=== PATIENT | female | born 1995 | race Hispanic/Latino ===

== ENCOUNTER 2019-08-17 09:57 | Inpatient (IN) | payer OTHER, SELFPAY ==
[2019-08-17] VITALS (62 sets, daily range): BP systolic 93–130; BP diastolic 47–90; PULSE 50–97; RESP 10–18; TEMP 36.1–37; O2SAT 92–100; BMI 33.4
--- NOTE | 2019-08-17 06:16 | HP_ITS ---
DATE OF SERVICE: CHIEF COMPLAINT: Elective repeat section. HISTORY OF PRESENT ILLNESS: A 23-year-old G4, P1-0-2-1 at 39 weeks and 4 days gestation, presenting for scheduled elective repeat section secondary to prior section. The patient reports some pelvic pain and pressure, but otherwise doing well. Feels good movement. Denies headaches, blurry vision, spots in her vision, chest pain, shortness of breath, abdominal pain, nausea, vomiting, diarrhea, constipation, or dysuria. PAST MEDICAL HISTORY: Anxiety, depression, headaches. PAST SURGICAL HISTORY: Dilation and curettage and 1 section. SOCIAL HISTORY: History of tobacco use. Denies alcohol or drug use. FAMILY HISTORY: Mother with diabetes and hypertension. OBSTETRICAL HISTORY: G4, P1-0-20-1 with 1 previous section. Also complicated with preeclampsia. CURRENT MEDICATIONS: vitamins and low-dose aspirin. ALLERGIES: FENTANYL, REACTION IS VOMITING. REVIEW OF SYSTEMS: 10-point review of systems completed. Pertinent positives and negatives as per the HPI. PHYSICAL EXAMINATION: GENERAL: No acute distress. Alert and oriented x3. PSYCHIATRIC: Appropriate mood and affect. RESPIRATORY: Nonlabored breathing. Clear to auscultation bilaterally. CARDIOVASCULAR: Regular rate and rhythm. ABDOMEN: Gravid, soft, nontender. REVIEW OF LABORATORY STUDIES: H and H from July 06, hemoglobin of 10.7 and hematocrit 33.2. ASSESSMENT: 1. 39-week term gestation. 2. History of previous section. DISCUSSION: Discussed with the patient risks, benefits, and alternatives to management. The patient desires elective repeat section. PLAN: Repeat section. D I MT: Bart
[2019-08-17] MEDS: LACTATED RINGERS 1,000 ML 125 ML IV CONT ×2 (10:55→19:26)
--- NOTE | 2019-08-17 10:55 | LDADM ---
This patient, Saul Cisneros, was admitted to Labor/Delivery/Recovery 119 on 08/17/19 at 09:57 for repeat section and bilateral tubal ligation. Plans for surgery/ and pain management were discussed with patient. Patient/family oriented to hospital policies and general routines including ID bracelet, bed and alarms, visiting hours, pain management, procedures, bathroom and other care routines, personal items, smoking policy, room service/diet and guest tray routines, security routines, and visiting hours. Patient/Family are encouraged to report perceived risks to care and to ask questions if they do not understand what they are told or what they should do. See OBIX for further documentation.
[2019-08-17 11:06] LABS: Basophils Percent Auto 0.3 % (0.2-1.2); Eosinophils Absolute Auto 0.1 K/mm3 (0-0.3); Eosinophils Percent Auto 0.6 % (0-4.4); Hematocrit 33.4 % (37.0-47.0); Hemoglobin 10.9 g/dL (12.0-15.0); Immature Granulocyte Absolute 0.06 K/mm3 (0.00-0.031); Immature Granulocyte Percent A 0.6 % (0-0.5); Lymphocytes Absolute Auto 2.35 K/mm3 (0.9-3.2); Lymphocytes Percent Auto 24.8 % (18.3-44.2); Mean Corpuscular HGB Conc 32.6 g/dl (32-36); Mean Corpuscular Hemoglobin 28.8 pg (26-34); Mean Corpuscular Volume 88.1 fl (80-100); Mean Platelet Volume 11.7 fl (7.4-10.4); Monocytes Absolute Auto 0.6 K/mm3 (0.1-0.6); Monocytes Percent Auto 6.2 % (2.6-8.5); Neutrophils Absolute Auto 6.4 K/mm3 (1.3-6.7); Neutrophils Percent Auto 67.5 % (45.5-73.1); Platelet Count Result 243 k/mm3 (150-375); Red Blood Count 3.79 M/mm3 (4.2-5.4); Red Cell Distribution Width 13.3 % (11.5-14.5); White Blood Count 9.5 K/mm3 (4.5-10.0)
--- NOTE | 2019-08-17 11:38 | P.PNAN_ITS ---
Anes - Initial Pre Proc Eval Procedure: Operation Date: 08/17/19 12:00 Proposed Procedures p Repeat Section with Bilateral Tubal Ligation - Kendrick Croft DO Date/Time: 08/17/19 11:38 Surgeon: Kendrick Croft DO Pre Op Diagnosis: repeat section, sterilization Patient Data Age: 23 Gender: F Height: 4 ft 10 in Weight: 72.5 kg Last Vital Signs Pulse 88 08/17/19 11:16 BP 96/56 L 08/17/19 11:16 Allergies Allergy/AdvReac Type Severity Reaction Status Date / Time No Known Allergies Allergy Verified 08/17/19 10:58 Home Medications Medication Instructions Recorded Confirmed Type No Home Medications 08/17/19 08/17/19 History Laboratory Tests 08/17/19 08/17/19 10:53 10:53 WBC 9.5 K/mm3 K/mm3 (4.5-10.0) RBC 3.79 M/mm3 L M/mm3 (4.2-5.4) Hgb 10.9 g/dL L g/dL (12.0-15.0) Hct 33.4 % L % (37.0-47.0) MCV 88.1 fl fl (80-100) MCH 28.8 pg pg (26-34) MCHC 32.6 g/dl g/dl (32-36) RDW 13.3 % % (11.5-14.5) Plt Count 243 k/mm3 k/mm3 (150-375) MPV 11.7 fl H fl (7.4-10.4) Immature Gran % (Auto) 0.6 % H % (0-0.5) Neut % (Auto) 67.5 % % (45.5-73.1) Lymph % (Auto) 24.8 % % (18.3-44.2) [place] % (Auto) 6.2 % % (2.6-8.5) Eos % (Auto) 0.6 % % (0-4.4) Baso % (Auto) 0.3 % % (0.2-1.2) Lymph # (Auto) 2.35 K/mm3 K/mm3 (0.9-3.2) [place] # (Auto) 0.6 K/mm3 K/mm3 (0.1-0.6) Eos # (Auto) 0.1 K/mm3 K/mm3 (0-0.3) Baso # (Auto) 0.0 K/mm3 K/mm3 (0.0-0.1) Abs Immat Gran (auto) 0.06 K/mm3 H K/mm3 (0.00-0.031) Absolute Neuts (auto) 6.4 K/mm3 K/mm3 (1.3-6.7) Absolute Nucleated RBC 0.0 K/mm3 K/mm3 (0.0-0.012) Nucleated RBC % 0.0 % % (0.0-0.2) RPR Pending Patient hx anesthesia problems: none Family hx anesthesia problems: none PMFSH Family History Family History Mother , From Staph infection Staph infection Social History Social History Smoking status: Former smoker Tobacco type: cigarettes Substance use: never Spiritual care concerns: No Anes - Eval Final PreProcedure Day of Procedure 08/17/19 11:38 Patient weight: obese Heart: regular rate and rhythm Lungs: clear to auscultation Airway: Mallampati scale class II Neurological: alert and oriented Last oral intake: >/= 8 hours ASA classification: II Emergent: no Anesthetic plan: proceed Anesthesia type and monitoring: regional spinal and standard monitoring Informed Consent: The patient's anesthetic plan and its attendant risks and benefits were discussed with the patient/family/POA. Questions were solicited and answers provided to the satisfaction of the patient/family/POA.
[2019-08-17] MEDS: LACTATED RINGERS 1,000 ML 999 ML IV CONT (11:42)
--- NOTE | 2019-08-17 12:08 | WPDHPUPDATE1 ---
History and Physical Update Update Date/Time: 08/17/19 12:08 History and Physical has been reviewed, including an updated exam of the patient. There are NO changes in the patient's condition. Risks, benefits, and alternatives have been discussed and questions answered. Patient agrees to proceed with procedure. She desires to have a tubal ligation. Discussed higher rate of regret for women who have tubal ligations before age of 30. Discussed alternate forms of control. She would like to proceed with permanent sterilization.
[2019-08-17] MEDS: ceFAZolin 2 GM/D5W 50 ML 2 GM/50 ML BAG IVPB (12:11)
--- NOTE | 2019-08-17 13:27 | PM.OP ---
Procedure Note - Brief Procedure Note - Brief Date of procedure: 08/17/19 Pre-op diagnosis: repeat section, sterilization Procedure performed: Repeat low transverse section, bilateral tubal ligation Anesthesia: spinal Surgeon: Kendrick Croft DO Estimated blood loss (mL): 380 Complications: No immediate complications Condition: stable
--- NOTE | 2019-08-17 15:55 | PC.NURSE ---
Patient transferred to post room #stretcher via [id number]. Oriented to unit, room, information board, rooming in, admission packet and security measures. Patient verbalizes understanding.
[2019-08-17] MEDS: IBUPROFEN 600 MG TABLET PO (19:23)
--- NOTE | 2019-08-18 00:17 | OP_ITS ---
DATE OF PROCEDURE: 08/17/2019 PROCEDURE: Repeat low transverse section and bilateral tubal ligation. PREOPERATIVE DIAGNOSES: 1. History of previous section. 2. Desires permanent sterilization. POSTOPERATIVE DIAGNOSES: 1. History of previous section. 2. Desires permanent sterilization. ANESTHESIA: Spinal. ESTIMATED BLOOD LOSS: 380 mL. FINDINGS: 1. Single live male , born on August 17, 2018 at 12:43, weight 7 pounds 11 ounces, Apgars of 8 and 9. 2. Right paratubal cyst. SPECIMEN: Portions of bilateral fallopian tubes. COMPLICATIONS: None apparent. BRIEF HISTORY: A 23-year-old, G2, P1, with a history of 1 previous section, presenting for elective repeat section. She also states she has completed childbearing and would like a tubal ligation, permanent sterilization. I discussed with the patient that for people who get permanent sterilization before the age of 30, have a higher rate of regret later on in the life, and alternatives were offered, such as IUD or Nexplanon or other forms of control. However, she states that she is sure that she wants a tubal ligation. The risks, benefits, and alternatives were discussed. DESCRIPTION OF PROCEDURE: The patient was transferred to the OR. The anesthesia team placed a spinal. The patient was placed on the OR table. After adequate anesthesia was established, the patient's abdomen was prepped using chlorhexidine, and the patient was draped in the usual sterile fashion. A time-out was performed to identify the correct patient and the correct procedure. Preoperative antibiotics were administered. A Pfannenstiel skin incision was made. Subsequent dissection of the subcutaneous tissue was performed with a scalpel down to the level of the fascia. The fascia was nicked at the midline. The fascial incision was extended bilaterally using the Jeffers scissors. We did note some adhesions and scar tissues at this point. The superior aspect of the fascia was grasped using the Smitha clamps, tented up, and the rectus muscles were carefully dissected off the fascia. Attention was then turned to the inferior aspect of the fascia. These were grasped using the Smitha clamps, tented up, and the rectus muscles were carefully dissected off the fascia. The rectus muscles were divided at the midline, and the peritoneum was entered. Filmy adhesions were noted at this point. An Flakito self-retaining retractor was inserted into the abdomen. A low transverse incision was made on the lower uterine segment, clear fluid was noted. The uterine incision was extended bilaterally bluntly with cephalad and caudad force. My hand was reached into the uterine cavity. The 's head was elevated to the level of the hysterotomy with gentle fundal pressure. The was delivered. Cord was clamped and cut. The was passed off to the waiting nurse. Cord blood was collected. The placenta was expressed. IV Pitocin was started. The uterine cavity was cleared of any remaining clots and products of conception. Hysterotomy was checked for any extensions, no extensions were noted. The hysterotomy was reapproximated using 0 Vicryl in a locking continuous fashion. A small area was noted to be bleeding. This was rectified using an 0 Vicryl in a [id number] stitch. At this point, good hemostasis was noted. Next, we proceeded for the tubal ligation. The bilateral fallopian tubes were noted. On the right side, there was a paratubal cyst. The right fallopian tube was tented up using a Primitivo. A Bovie was used to create a small hole in the mesosalpinx. An 0 chromic was used to perform the tubal ligation in the Hoffman fashion. A portion of the fallopian tube was sent off for pathology. Good hemostasis
[2019-08-18 04:30] VITALS: BP 123/72; PULSE 85; RESP 16; TEMP 36.4; O2SAT 99
[2019-08-18] MEDS: IBUPROFEN 600 MG TABLET PO ×3 (05:02→19:18)
[2019-08-18 05:21] LABS: Basophils Percent Auto 0.3 % (0.2-1.2); Eosinophils Absolute Auto 0.1 K/mm3 (0-0.3); Eosinophils Percent Auto 0.5 % (0-4.4); Hematocrit 30.3 % (37.0-47.0); Hemoglobin 9.7 g/dL (12.0-15.0); Immature Granulocyte Absolute 0.04 K/mm3 (0.00-0.031); Immature Granulocyte Percent A 0.4 % (0-0.5); Lymphocytes Absolute Auto 2.22 K/mm3 (0.9-3.2); Lymphocytes Percent Auto 20.1 % (18.3-44.2); Mean Corpuscular Volume 90.4 fl (80-100); Mean Platelet Volume 12.1 fl (7.4-10.4); Monocytes Absolute Auto 0.8 K/mm3 (0.1-0.6); Monocytes Percent Auto 7.1 % (2.6-8.5); Neutrophils Absolute Auto 7.9 K/mm3 (1.3-6.7); Neutrophils Percent Auto 71.6 % (45.5-73.1); Platelet Count Result 211 k/mm3 (150-375); Red Blood Count 3.35 M/mm3 (4.2-5.4); Red Cell Distribution Width 13.4 % (11.5-14.5)
[2019-08-18 08:15] VITALS: BP 138/69; PULSE 86; RESP 16; TEMP 36.3; O2SAT 96
[2019-08-18] MEDS: DOCUSATE SODIUM 100 MG CAPSULE PO ×2 (08:25→16:47)
[2019-08-18] MEDS: POLYSACCHARIDE IRON COMPLEX 150 MG CAPSULE PO ×2 (08:26→16:47)
--- NOTE | 2019-08-18 09:11 | WPDANLDPN2 ---
Anes-Prog Note L&D Date/Time: 08/18/19 09:11 Comfortable throughout: section Neuraxial method: spinal Epidural/Spinal procedure site: clean & non-tender Neuro status: Neuro function grossly intact. Cardiovascular status: normal Respiratory status: normal Airway patency: baseline Mental status: baseline Post-Op hydration status: normal Vital Signs: Last Vital Signs Temp 36.4 C 08/18/19 04:30 Pulse 85 08/18/19 04:30 Resp 16 08/18/19 04:30 BP 123/72 08/18/19 04:30 Pulse Ox 99 08/18/19 04:30 Pain score (VAS): 0/10. Patient resting in bed at time of assessment, appears comfortable. I/O: Intake & Output 08/17/19 08/18/19 08/18/19 23:59 07:59 15:59 Output Total 425 1750 Balance -425 -1750 Post-procedural complaints: none Patient feedback: Patient satisfied with anesthetic care.
--- NOTE | 2019-08-18 09:12 | WPDANLDNPN2 ---
Anes-Prog Note L&D-Neuraxial Date/Time: 08/18/19 09:12 Neuraxial medications: intrathecal PF morphine Opiod-related complaints: none Patient feedback: Patient satisfied with post-operative pain management.
[2019-08-18 09:29] LABS: Rapid Plasma Reagin Non-Reactive (NonReactive)
--- NOTE | 2019-08-18 11:43 | P.PNOB_ITS ---
OB - PN: Subj Subjective Date/time seen: 08/18/19 11:43 Interval history: 23yo s/p rLTCS & BTL on 08/16. Doing well. Pain well controlled. Lochia minimal. Ambulating without issues. Tolerating diet. Passing flatus. No issues urinating. Denies fevers, chills, nausea, vomiting. Patient comments: pain well controlled and incisional pain baby status: doing well OB - PN: Obj Data Labs CBC & Chem 7: 08/18/19 05:07 Labs: Laboratory Results - last 24 hr 08/17/19 08/17/19 08/18/19 10:53 10:53 05:07 WBC 11.0 H RBC 3.35 L Hgb 9.7 L Hct 30.3 L MCV 90.4 MCH 29.0 MCHC 32.0 RDW 13.4 Plt Count 211 MPV 12.1 H Immature Gran % (Auto) 0.4 Neut % (Auto) 71.6 Lymph % (Auto) 20.1 [place] % (Auto) 7.1 Eos % (Auto) 0.5 Baso % (Auto) 0.3 Lymph # (Auto) 2.22 [place] # (Auto) 0.8 H Eos # (Auto) 0.1 Baso # (Auto) 0.0 Abs Immat Gran (auto) 0.04 H Absolute Neuts (auto) 7.9 H Absolute Nucleated RBC 0.0 Nucleated RBC % 0.0 RPR Non-reactive Blood Type O Positive Antibody Screen Negative OB - PN A/P Assessment and Plan (1) S/P repeat low transverse : Code(s): Z98.891 - History of uterine scar from previous surgery Status: Acute Assessment and Plan: Routine postop / care Pain management Ambulate (2) History of bilateral tubal ligation: Code(s): Z98.51 - Tubal ligation status Status: Acute Time Spent With Patient Time: Total time spent is greater than 50% in coordination of care (as documented) at patient's floor/unit and/or counseling patient: Review of Systems Review of Systems: All systems reviewed & are unremarkable except as noted in HPI and below Exam Const: General: comfortable, no acute distress, alert and awake Resp: Effort & Inspection: normal respiratory effort Cardio: Rate: regular rate GI: Other: soft, nontender, fundus firm
[2019-08-18 13:20] VITALS: BP 116/75; PULSE 94; RESP 18; TEMP 36.5; O2SAT 98
[2019-08-18 19:10] VITALS: BP 136/90; PULSE 85; RESP 14; TEMP 36.4; O2SAT 97
[2019-08-19] MEDS: IBUPROFEN 600 MG TABLET PO ×2 (05:51→14:22)
[2019-08-19 07:50] VITALS: BP 133/78; PULSE 80; RESP 16; TEMP 36.3; O2SAT 99
[2019-08-19] MEDS: POLYSACCHARIDE IRON COMPLEX 150 MG CAPSULE PO (08:21)
[2019-08-19] MEDS: DOCUSATE SODIUM 100 MG CAPSULE PO (08:21)
[2019-08-19] MEDS: TETANUS,DIPHTHERIA,AC PERTUSSIS ADULT 0.5 ML (ADACEL) IM (08:22)
--- NOTE | 2019-08-19 10:27 | PM.OBPNVD ---
OB - PN: Subj Subjective Date/time seen: 08/19/19 10:27 Interval history: 23yo s/p rLTCS & BTL on 08/16. POD#2. Doing well. Pain well controlled with medications. Lochia minimal. Ambulating without issues. Tolerating diet, without nausea or vomiting. Passing flatus. No issues urinating. Denies fevers, chills, chest pain, shortness of breath, dizziness, or headache. Bottle feeding. Desires to be discharged home today. baby status: doing well, s/p circumcision OB - PN: Obj Data Labs CBC & Chem 7: 08/18/19 05:07 OB - PN A/P Plan day: 2 Plan: routine care and discharge home Comments: - Meeting all post-op milestones - Pt desires to be discharged home today. Ok to be discharged home - Labs and vitals stable - ER return precautions: pain/n/v, fever, bleeding, HTN - Pelvic rest - F/u in 2 weeks for post-op check Time Spent With Patient Time: Total time spent is greater than 50% in coordination of care (as documented) at patient's floor/unit and/or counseling patient: Review of Systems Review of Systems: All systems reviewed & are unremarkable except as noted in HPI and below (HPI) Exam Const: General: comfortable, no acute distress, alert and awake Orientation/consciousness: patient oriented x3 Other: ambulating in room Resp: Effort & Inspection: normal respiratory effort Auscultation: clear to auscultation bilaterally Cardio: Rate: regular rate GI: Auscultation: normal bowel sounds Other: non-distended, soft, appropriately tender to palpation, fundus firm below umbilicus, pfannenstiel incision c/d/i covered with steri strips. Psych: Appearance: grossly normal Affect: normal affect Attitude: cooperative
--- NOTE | 2019-08-19 14:41 | PC.NURSE ---
Patient viewed the discharge video Mother & Baby Care, The First Two Weeks . Patient was given the opportunity and encouraged to ask questions. Patient verbalized understanding of information shared and has been given the mother/baby guide for home reference.
[2019-08-20 09:12] VITALS: BP 125/74; PULSE 87; RESP 18; TEMP 36.6
--- NOTE | 2019-08-22 07:50 | PM.DS ---
DS: Diagnosis Admitting Diagnosis Admitting Diagnosis: History of uterine scar from previous surgery Discharge Diagnosis (1) S/P repeat low transverse : Code(s): Z98.891 - History of uterine scar from previous surgery Status: Acute (2) History of bilateral tubal ligation: Code(s): Z98.51 - Tubal ligation status Status: Acute DS: Summary Hospital Course Reason for hospitalization: Elective repeat section, desires permanent sterilization Hospital Course: Admitted for elective repeat section and bilateral tubal ligation. Uncomplicated course, patient progressed as expected. Stable and ready for discharge on POD#2 Status at Discharge Functional status at discharge: independent ambulation Overall status at discharge: patient is progressing back to baseline Time Spent with Patient Time attestation: Total time spent providing and/or coordinating discharge services: Exam Const: General: comfortable, no acute distress, alert and awake Orientation/consciousness: patient oriented x3 Other: ambulating in room Resp: Effort & Inspection: normal respiratory effort Auscultation: clear to auscultation bilaterally Cardio: Rate: regular rate GI: Auscultation: normal bowel sounds Other: non-distended, soft, appropriately tender to palpation, fundus firm below umbilicus, pfannenstiel incision c/d/i covered with steri strips. Neuro: General: patient oriented x3 Psych: Appearance: grossly normal Affect: normal affect Attitude: cooperative DS: Data Data Completed and Pending Completed studies during hospitalization: Pending at discharge 08/17/19 12:56 Surgical [PTH] Routine Surgical [PTH] Routine Discharge Plan Discharge Attending physician on discharge: Tatyana Garcia Discharging Clinician: Tatyana Garcia Anticipated Discharge Date/Time: 08/19/19 16:00 Patient Disposition: Home, Self-Care Activity: no straining, pelvic rest and other - see discharge instructions Diet: regular Discharge Instructions: Education: Mom and Baby Guide Given to: Mother Follow-Up: Call your delivering provider's office for an appointment to be seen in: 2 Weeks Mom and baby should come to the [facility] for the follow-up appointment. Appointment Date/Time: Tuesday, August 20, 2019 at 9:00 am What to expect at your follow-up visit: Blood Pressure Check Physical Assessment Call [phone] if you are unable to keep your appointment time. BREAST CARE: 1. Wear a snug supportive bra. Bottle Feeding: A. May apply ice packs ABDOMINAL INCISION: (if applicable) 1. Allow incision to air dry 2. Do NOT use lotions for powders on your incision 3. When showering, allow soap and water to run over the incision, but do not wash incision EPISIOTOMY/PERINEAL CARE: 1. Until bleeding stops, use your severiano bottle after urinating 2. Change your pad frequently throughout the day 3. You may take sitz baths several times a day (fill your bathtub with warm water and soak for 20 minutes.) Do NOT bathe in the water 4. No tub baths until seen by your physician - You may shower ACTIVITY: 1. Rest as much as possible. 2. Do not exercise or lift anything heavier than your baby (such as laundry or other children.) 3. Avoid stairs or driving as much as possible. 4. Do not put anything into the vagina. No douching, tampons, or sexual activity until seen by physician. NOTIFY PHYSICIAN IF YOU HAVE ANY QUESTIONS OR IF ANY OF THE FOLLOWING SYMPTOMS OCCUR: 1. If your incision becomes red, swollen, or more painful than what you have experienced in the hospital. 2. If your vaginal bleeding becomes foul smelling. 3. If your vaginal bleeding becomes more heavy than a period or if your bleeding changes from pink to bright red. However, you may pass an occasional walnut-sized clot once or twice for the first week . 4. If you experience a
== END 2019-08-19 17:30 | disposition home or self-care (01) | DRG 540 ==
LOC: ANHLDR 10:43 → ANHOB2 08-18 15:08 → ANHLDR 08-22 10:26 → ANHOB2 08-22 10:26
PROVIDERS: Admitting Provider Obstetrics & Gynecology; Visit Provider Obstetrics & Gynecology
PROC: 10D00Z1 Extraction of Products of Conception, Low, Open Approach (ICD-10-PCS; CPT 59514; principal; 2019-08-17 12:00)
DX: O34.211 Maternal care for low transverse scar from previous cesarean delivery (principal); Z37.0 Single live birth; Z3A.39 39 weeks gestation of pregnancy; Z23 Encounter for immunization; O99.214 Obesity complicating childbirth; E66.9 Obesity, unspecified; Z30.2 Encounter for sterilization
CPT/HCPCS: 36415; 85025; 86592; 86850; 86900; 86901; 88302; 90471; 90686; 90715; A9270; G0008; J0131; J0690; J1200; J2274; J2405; J2590; J7120